=== PATIENT | male | born 1995 | race Caucasian/White ===

== ENCOUNTER 2025-03-30 21:24 | Emergency (ER) | payer BC, SELFPAY ==
--- NOTE | ~2025-03-30 | XR_ITS ---
XR ankle LT min 3V Ordering provider: Susana De Santiago MD History: . achiles pain X 2 MONTHS . Comparison: None. FINDINGS: BONES: No acute fracture or dislocation. JOINT SPACES: The ankle mortise is normal. SOFT TISSUES: Normal. IMPRESSION: No acute osseous abnormality left ankle. Reviewed, dictated and finalized at location A.
[2025-03-30 21:53] VITALS: BP 139/85; PULSE 80; RESP 16; TEMP 36.2; O2SAT 100
[2025-03-31 00:47] VITALS: BP 128/88; PULSE 65; RESP 18; O2SAT 100
--- NOTE | 2025-03-31 00:54 | ED_ITS ---
HPI - General Adult General Chief complaint: Extremity Injury, Lower Stated complaint: foot pain Time Seen by Provider: 03/31/25 00:45 History of Present Illness HPI narrative: Patient is a 29-year-old male who presents to the emergency department this evening complaining of left Achilles pain for the past 2 months. Patient states that he was running up the stairs skipping steps 2 months ago when he felt a shooting pain to his Achilles tendon. Patient is still able to walk and plantar flex and dorsiflex his left foot but believes that he pulled something or torn something as he has been having this pain on and off for 2 months. He has tried to rest his ankle for 1-2 weeks at a time with improvement of his symptoms but states that any mild activity precipitate the pain again. States that he has not followed up with an orthopedic doctor or his primary care physician regardi ng this injury. Denies any additional symptoms or concerns at this time. Related Data Allergies Allergy/AdvReac Type Severity Reaction Status Date / Time No Known Allergies Allergy Verified 03/30/25 21:26 Review of Systems Review of Systems: All systems are reviewed and are negative unless stated otherwise in the HPI. Exam Narrative: General: Alert, awake, afebrile, in no acute distress. HEENT: PERRL, no rhinorrhea, no post nasal drip, oropharynx clear. Neck: Trachea midline, no JVD, no lymphadenopathy. Cardiovascular: Regular rate and rhythm, no murmurs, rubs or gallops, no peripheral edema. Respiratory: Clear to auscultation bilaterally, no tachypnea, no wheezing, no rhonchi, no rubs, no respiratory distress. Abdomen: Soft, nontender, nondistended, no rebound, no guarding, no peritoneal signs. Musculoskeletal: No joint swelling or deformity, normal muscle tone specifically along the left ankle joint, intact plantar flexion and dorsiflexion of the left foot, no deformity or tenderness noted along the left Achilles tendon. Skin: No rashes or petechia, no signs of infection. Psychiatric: Alert and oriented, normal behavior and judgment for situation. Neurological: Alert and oriented to person, place, and time. Follows all commands. No focal deficits, speech is clear and fluent. Course Vital Signs Vital signs: Vital Signs Temperature 97.1 F L 03/30/25 21:53 Pulse Rate 80 03/30/25 21:53 Respiratory Rate 16 03/30/25 21:53 Blood Pressure 139/85 03/30/25 21:53 Pulse Oximetry 100 03/30/25 21:53 Oxygen Delivery Room Air 03/30/25 21:53 Temperature 97.1 F L 03/30/25 21:53 Pulse Rate 65 03/31/25 00:47 Respiratory Rate 18 03/31/25 00:47 Blood Pressure 128/88 03/31/25 00:47 Pulse Oximetry 100 03/31/25 00:47 Oxygen Delivery Room Air 03/30/25 21:53 Medical Decision Making MDM Narrative Medical decision making narrative: The patient was evaluated by myself in the emergency department. History is obtained from patient who is an independent historian and physical exam was performed. External medical records were reviewed at this time. Imaging studies obtained included left ankle x-ray which was independently interpreted by me revealing no acute process, which is pending final radiology interpretation. Differential diagnosis considerations include muscle strain, ruptured Achilles, tendonitis. Comorbidities impacting this visit include none. I have evaluated and discussed social determinants of health with the patient that could potentially impact subsequent diagnosis and treatment plans. On repeat assessment of the patient, reevaluation revealed that the patient is doing well and is in no acute distress. Patient symptoms have remained stable since he arrived to our emergency department. Repeat vital signs were all reviewed and noted to be stable. Differential diagnosis and treatment plan were discussed with the patient at bedside. Patient agrees with discussion and after shared medical decision making agrees with discharge. All questions were answered to the patient's satisfaction. Patient will follow up with Orthopedics in 3-5 days. Patient was provided with strict return precautions and instructed to return to the emergency department if any new or worsening symptoms develop. The patient was discharged in stable condition. Vital Signs Vital Signs: Vital Signs Temperature 97.1 F L 03/30/25 21:53 Pulse Rate 80 03/30/25 21:53 Respiratory Rate 16 03/30/25 21:53 Blood Pressure 139/85 03/30/25 21:53 Pulse Oximetry 100 03/30/25 21:53 Oxygen Delivery Room Air 03/30/25 21:53 Temperature 97.1 F L 03/30/25 21:53 Pulse Rate 65 03/31/25 00:47 Respiratory Rate 18 03/31/25 00:47 Blood Pressure 128/88 03/31/25 00:47 Pulse Oximetry 100 03/31/25 00:47 Oxygen Delivery Room Air 03/30/25 21:53 Discharge Plan Discharge Clinical Impression: Ankle sprain and strain, Achilles tendinitis Patient Disposition: Home Condition: Improved Instructions: Antibiotic Form, Tendinitis (ED) Additional Instructions: Please follow-up with the orthopedic doctor you were provided with today within the next 3-5 days. Return to the ED if any new or worsening symptoms develop. Patient Language: [place] Follow-up/Referrals: Greg Wan MD [Physician] - 3 Days UNKNOWN,DOCTOR [Primary Care Provider] - Time of Disposition: 00:58
--- OUTSIDE RECORDS SUMMARY | 2025-03-31 00:59 | XMS_ITS | Continuity of Care Document ---
Author Name [facility] Organization [facility] Care Team Providers Care Loop Sewer Name Role Phone [facility] Unavailable Unavailable Immunizations Combined list of available immunizations from the Department of Defense and Veterans Affairs facilities. Immunization Series Date Given Administered By Site Reaction Lot Number CVX Code Drug Esl Professor Status Comments Source influenza virus vaccine, unspecified 2020 TRANSCR IBED 88 complet ed influenza virus vaccine, unspecifi ed 09/05/21 Given Ambulat ory Pharmac y COVID Vaccine Pfizer 2020 TRANSCR IBED 208 PFIZER complet ed COVID Vaccine Pfizer 06/28/21 Given Ambulat ory Pharmac y COVID Vaccine Pfizer 2020 [id number] PFIZER complet ed COVID Vaccine Pfizer 06/07/21 Given Ambulat ory Pharmac y influenza virus vaccine, unspecified 2020 TRANSCR IBED 88 complet ed influenza virus vaccine, unspecifi ed 11/09/20 Given Ambulat ory Pharmac y influenza, injectable, quadrivalent 2018 [id number] 158 Seqirus complet ed influenza , injectabl e, quadrival ent 06/26/19 Given Ambulat ory Pharmac y anthrax vaccine 2018 [id number] Emergent [employer] complet ed anthrax vaccine 11/13/18 Given Ambulat ory Pharmac y anthrax vaccine 2017 [id number] [employer] complet ed anthrax vaccine 08/29/18 Given Ambulat ory Pharmac y influenza, injectable, quadrivalent- pf 2017 [id number] 150 Seqirus complet ed influenza , injectabl e, quadrival ent-pf 08/29/18 Given Ambulat ory Pharmac y influenza, injectable, quadrivalent- pf 2017 [id number] 150 Seqirus complet ed influenza , injectabl e, quadrival ent-pf 07/05/18 Given Ambulat ory Pharmac y typhoid Vi capsular polysaccharid e vac 2017 [id number] sanofi pasteur complet ed typhoid Vi capsular polysacch aride vac 04/26/18 Given Ambulat ory Pharmac y hepatitis A adult vaccine 2016 [id number] Merck [employer] Company Inc complet ed hepatitis A adult vaccine 07/05/17 Given Ambulat ory Pharmac y influenza virus vaccine, inactivated 2016 [id number] Seqirus complet ed influenza virus vaccine, inactivat ed 07/05/17 Given Ambulat ory Pharmac y measles/mumps /rubella virus vaccine 2016 [id number] Merck [employer] Company Inc complet ed measles/m umps/rube lla virus vaccine 12/16/16 Given Ambulat ory Pharmac y measles/mumps /rubella virus vaccine 2016 [id number] Merck [employer] Company Inc complet ed measles/m umps/rube lla virus vaccine 11/06/16 Given Ambulat ory Pharmac y hepatitis A adult vaccine 2016 [id number] GlaxoSmithKli ne complet ed hepatitis A adult vaccine 11/06/16 Given Ambulat ory Pharmac y tuberculin purified protein derivative 2016 [id number] sanofi pasteur complet ed tuberculi n purified protein derivativ e 11/01/16 Given Ambulat ory Pharmac y adenovirus vaccine, live 2016 [id number] 143 Teva Pharmaceutica ls complet ed adenoviru s vaccine, live 11/01/16 Given Ambulat ory Pharmac y poliovirus vaccine, inactivated 2016 [id number] 10 sanofi pasteur complet ed polioviru s vaccine, inactivat ed 11/01/16 Given Ambulat ory Pharmac y influenza, seasonal, injectable-pf 2016 [id number] 140 Seqirus complet ed influenza , seasonal, injectabl e-pf 11/01/16 Given Ambulat ory Pharmac y meningococcal A,C,Y,W-135 (MCV4P) 2016 [id number] 114 sanofi pasteur complet ed meningoco ccal A,C,Y,W-1 35 (MCV4P) 11/01/16 Given Ambulat ory Pharmac y tetanus, diphtheria, acellular pertu is 2016 [id number] GlaxoSmithKli ne complet ed tetanus, diphtheri a, acellular pertussis 11/01/16 Given Ambulat ory Pharmac y Procedures Combined list of: 1) Procedures from Department of Veterans Affairs facilities going back up to thelast 18 months, not all [place] non-surgical procedures are included; 2) All procedures from the Department of Defense facilities. Procedure Procedure Type Code Date Perfomer Comments Sourc e No data available for this section Ambulatory P harmacy Social History Combined list of available smoking, tobacco, and other social history from Department of Defense and Veterans Affairs facilities. Social History Type Response Date Comment Sourc e This section is an empty social history section. DoD Assessment and Plan Combined list of future care activities from Department of Defense and Veterans Affairs facilities (e.g., assessment and plan notes, appointments, orders, and referrals). Additional future care activities may be listed in the Plan of Care section. Result Assessment and Plan Date Source Assessment and Plan No data available for this section 03/31/2025 Ambulatory Pharmacy Functional Status Combined list of recent functional and cognitive assessments recorded at [facility] [place] Functional [place] Measurement (FIM) Scale: 1 = Total Assistance (Subject = 0% +), 2 = Maximal Assistance (Subject = 25% +), 3 = Moderate Assistance (Subject = 50% +), 4 = Minimal Assistance (Subject = 75% +), 5 = Supervision, 6 = Modified [place] (Device), 7 = Complete [place] (Timely, Safely). Assessment Date/Time Source Assessment Type Assessment Skill Assessment Score Assessment Details No data available for this section
== END 2025-03-31 01:10 | disposition home or self-care (01) ==
PROVIDERS: Emergency Provider Emergency Medicine
DX: S93.402A Sprain of unspecified ligament of left ankle, initial encounter (principal); M76.62 Achilles tendinitis, left leg; X50.0XXA Overexertion from strenuous movement or load, initial encounter
CPT/HCPCS: 73610; 99283

== ENCOUNTER 2025-04-12 09:44 | Outpatient (CLI) | payer BC, SELFPAY ==
--- NOTE | ~2025-04-12 | MR_ITS ---
EXAMINATION: MR lower leg LT wo con DATE: 04/12/2025 10:29 INDICATION: Left Achilles tendon injury TECHNIQUE: Magnetic resonance imaging (MRI) of the left lower leg was performed without intravenous c ontrast. Sequences included axial, sagittal and coronal T1-weighted FSE and fluid sensitive FSE STIR . The contralateral right lower leg is included on the coronal images. COMPARISON: None. FINDINGS: Bone marrow signal is normal throughout with no reactive edema, fracture or pathologic marrow replaci ng process. There is normal and symmetric muscle bulk and signal throughout the bilateral calves. The visualized portions of the tendons are normal. Specifically the Achilles tendon is normal with no te ndinosis or tear. No evident joint effusions, bursitis, tenosynovitis or other abnormal fluid collect ions. IMPRESSION: 1. Normal left lower leg MR with no evident tendinosis or tear of the Achilles tendon. Reviewed, dictated and finalized at location A.
== END 2025-04-12 09:45 | disposition home or self-care (01) ==
LOC: GOSHIMG 09:45
PROVIDERS: PCP Orthopaedic Surgery; Visit Provider Orthopaedic Surgery
DX: S86.002A Unspecified injury of left Achilles tendon, initial encounter (principal); X58.XXXA Exposure to other specified factors, initial encounter
CPT/HCPCS: 73718